=== PATIENT | male | born 1960 | race African-American/Black ===

== ENCOUNTER 2020-04-11 11:33 | Outpatient (CLI) | payer MEDICARE, MEDICAID, SELFPAY ==
--- NOTE | ~2020-04-11 | XR_ITS ---
EXAMINATION: XR shoulder RT min 2V EXAM DATE: 04/11/2020 12:09 INDICATION: No known recent injury provided at this time. Pain of the right shoulder. Adhesive capsul itis. TECHNIQUE: The following right shoulder projections obtained: frontal projection with internal rotati on, frontal projection with external rotation, Grashey, and axillary (4+ views). FINDINGS: No evidence of right shoulder rotator cuff calcific tendinosis. Unremarkable right bruce ohumeral and acromioclavicular joints. There are no acute fractures or dislocations identified. Ther e is no subcutaneous gas. The soft tissue is unremarkable. There are no radiopaque foreign bodies. IMPRESSION: 1. Unremarkable right shoulder exam. Reviewed, dictated and finalized at location B.
--- NOTE | ~2020-04-11 | XR_ITS ---
EXAMINATION: XR chest 2V EXAM DATE: 04/11/2020 12:09 INDICATION: Central Chest pain. Right shoulder pain. TECHNIQUE: Frontal and lateral projections of the chest obtained and reviewed. There is no prior carmella dy for comparison. FINDINGS: The lungs are clear. There are no pleural effusions. The cardiomediastinal silhouette is within normal limits. There is no pneumothorax suspected. The bones and soft tissues are unremarkab le. IMPRESSION: Normal chest x-ray exam. Reviewed, dictated and finalized at location B. IMPRESSION: Normal chest x-ray exam.
--- NOTE | 2020-04-11 12:12 | ECG_ITS ---
Measurements Intervals [place] Rate: 85 P: 65 OK: 176 QRS: 20 QRSD: 78 T: 16 QT: 391 QTc: 466 Interpretive Statements SINUS RHYTHM ST ELEVATION IN ANT/INF LEADS- PROBABLY EARLY REPOLARIZATION BASELINE WANDER- III, AVL BORDERLINE ECG Electronically Signed On 04-11-2020 13:17:13 CDT by Shawn Aguilera D.O.
== END 2020-04-11 11:34 | disposition home or self-care (01) ==
PROVIDERS: PCP Internal Medicine; Visit Provider Internal Medicine
DX: R07.9 Chest pain, unspecified (principal); M75.01 Adhesive capsulitis of right shoulder; R94.31 Abnormal electrocardiogram [ECG] [EKG]
CPT/HCPCS: 71046; 73030; 93005